=== PATIENT | female | born 1990 ===

== ENCOUNTER 2018-05-17 12:33 | Outpatient (CLI) | payer OTHER ==
[~2018-05-17 12:33] MED LIST: EAR DROPS15 ML OTIC; FLONASE16 GM NS
== END 2018-05-18 11:40 | disposition home or self-care (01) ==
LOC: OBS/DEL 12:33
DX: O26.892 Other specified pregnancy related conditions, second trimester (principal); J06.9 Acute upper respiratory infection, unspecified; Z34.02 Encounter for supervision of normal first pregnancy, second trimester

== ENCOUNTER 2018-08-23 16:35 | Inpatient (IN) | payer OTHER ==
[~2018-08-23] VITALS: Ht 170.2 cm; Wt 90.3 kg
[2018-08-23] MEDS ORDERED: PRENATAL TABLE1 EAC1 PO (17:22)
[2018-08-23] MEDS ORDERED: FOLIC ACID20 MG PO (17:22)
[2018-08-23] MEDS ORDERED: VITAMIN C1000 MG PO (17:23)
== END 2018-08-26 12:35 | DRG 833 ==
LOC: LDR 16:35 → OB/GYN 08-24 20:33
PROC: 4A1HXCZ Monitoring of Products of Conception, Cardiac Rate, External Approach (ICD-10-PCS; principal; 2018-08-23)
DX: O24.414 Gestational diabetes mellitus in pregnancy, insulin controlled (principal); Z34.03 Encounter for supervision of normal first pregnancy, third trimester

== ENCOUNTER 2018-11-04 13:39 | Outpatient (CLI) | payer OTHER ==
[~2018-11-04 13:39] MED LIST changes: +FOLIC ACID20 MG PO; +PRENATAL TABLE1 EAC1 PO; +VITAMIN C1000 MG PO
[2018-11-05] MEDS ORDERED: PRENATAL FORMU1 EAC1 PO (11:18)
== END 2018-11-04 17:27 | disposition home or self-care (01) ==
LOC: OBS/DEL 13:39 → LDR 13:41 → OBS/DEL 14:06
DX: O60.03 Preterm labor without delivery, third trimester (principal); O24.410 Gestational diabetes mellitus in pregnancy, diet controlled; Z34.03 Encounter for supervision of normal first pregnancy, third trimester

== ENCOUNTER 2018-11-05 05:00 | Inpatient (IN) | payer OTHER ==
[~2018-11-05] VITALS: Ht 172.7 cm; Wt 95.7 kg
[2018-11-05] MEDS ORDERED: PRENATAL FORMU1 EAC1 PO (11:18)
== END 2018-11-07 15:13 | disposition home or self-care (01) | DRG 807 ==
LOC: OB/GYN 05:00 → LDR 05:00 → OB/GYN 05:33 → LDR 08:13 → OB/GYN 14:54
PROVIDERS: ADMIT Obstetrics & Gynecology
PROC: 10E0XZZ Delivery of Products of Conception, External Approach (ICD-10-PCS; principal; 2018-11-05)
PROC: 0W8NXZZ Division of Female Perineum, External Approach (ICD-10-PCS; 2018-11-05)
PROC: 3E033VJ Introduction of Other Hormone into Peripheral Vein, Percutaneous Approach (ICD-10-PCS; 2018-11-05)
PROC: 4A1HXCZ Monitoring of Products of Conception, Cardiac Rate, External Approach (ICD-10-PCS; 2018-11-05)
PROC: 4A033R1 Measurement of Arterial Saturation, Peripheral, Percutaneous Approach (ICD-10-PCS; 2018-11-05)
DX: O24.410 Gestational diabetes mellitus in pregnancy, diet controlled (principal); Z37.0 Single live birth; Z3A.40 40 weeks gestation of pregnancy